=== PATIENT | male | born 1980 | race Caucasian/White ===

== ENCOUNTER 2019-04-06 11:29 | Emergency (ER) | payer OTHER ==
[2019-04-06 11:43] VITALS: BP 138/93
[2019-04-06] MEDS ORDERED: BUFFERED LIDOCAINE 10 ML SYRINGE SUBQ STA (13:02)
--- NOTE | 2019-04-06 13:13 | ED Physician Documentation ---
History of Present Illness - Stated complaint Stated Complaint: BACK PX - Chief complaint Chief Complaint: Back Pain - Additonal information Additional information: This is a 38-year-old male with a history of multiple hernia repairs, who pr esents due to left upper back pain as well as being checked for recurrence of his inguinal hernia. Patient states that this last week he was in physical training and he picked up a log, and he felt immediate strain in his left upper back. Pain is been persistent since that time, and as he has been physically active each day so he has not had a time to rest it, and it has persisted. Motrin has not been helpful with his pain. He denies any pain in the midline of his back, he has some mild discomfort in his lower back which he thinks is from compensating how he carries himself due to his upper back pain. No shortness of breath, no chest pain. He also has some mild discomfort in his right inguinal region where he had a past multiple hernia repairs. He has not noticed any bulge, but he states that his sensation is area is somewhat limited due to his surgeries, so he wants to be checked to make sure his hernia has not recurred. No dysuria or testicular pain. Review of Systems Constitutional: denies: Fever : denies: Dysuria Skin: denies: Rash Musculoskeletal: reports: Back pain Neurologic: denies: Focal weakness PD PAST MEDICAL HISTORY - Past Medical History Past Medical History: No - Past Surgical History Past Surgical History: Yes General: Hiatal hernia repair - Present Medications Home Medications: Ambulatory Orders Medication Instructions Recorded Confirmed Cyclobenzaprine [Flexeril] 10 mg PO TID PRN #20 tablet 04/06/19 - Allergies Allergies/Adverse Reactions: Allergies Allergy/AdvReac Type Severity Reaction Status Date / Time No Known Drug Allergies Allergy Verified 04/06/19 11:43 - Social History Does the pt smoke?: No Smoking Status: Never smoker Does the pt drink ETOH?: Yes Does the pt have substance abuse?: No - Immunizations Immunizations are current?: Yes - POLST Patient has POLST: No PD ED PE NORMAL - Vitals Vital signs reviewed: Yes - General General: Alert and oriented X 3, No acute distress - HEENT HEENT: Atraumatic - Neck Neck: No bony TTP - Cardiac Cardiac: Other (Well-perfused extremities) - Respiratory Respiratory: Clear bilaterally - Abdomen Abdomen: Non distended - Male Male : Other (Genitalia normal in appearance. There is a small scar in the right inguinal region, which appears well-healed. There is no bulge or tenderness in this region. No inguinal mass palpated, no scrotal mass palpated, and no inguinal bulging with Valsalva/coughing.) - Back Back: Other (Patient has tenderness palpation over the left thoracic paraspinous muscles in the region of T8. There is no midline tenderness. There is more mild bilateral paraspinous lumbar discomfort, but no midline tenderness.) - Derm Derm: Warm and dry - Extremities Extremities: No deformity - Neuro Neuro: Alert and oriented X 3, No motor deficit, No sensory deficit - Psych Psych: Normal mood, Normal affect Results - Vitals Vitals: Oxygen O2 Source Room air Procedures - General procedure General procedure: Trigger point injection: After verbal consent obtained and risks discussed, the area of maximal tenderness was palpated and cleaned with alcohol. USing a 27 gauge needle 0.5cc lidocaine was injected in 2 areas of maximal tenderness. Care was taken to stay superficial in the muscle, and I withdrew on the syringe prior to injection to ensure the needle was not in a vessel. Pt tolerated the procedure well without immediate complication. PD MEDICAL DECISION MAKING - ED course Complexity details: considered differential (strain, sprain, spasm, fracture, hernia) ED course: Pt has pain and tenderness in his paraspinous muscles after a straining event. No midline tenderness or red flags that would necessitate imaging. Trigger point injection performed and we will treat with tylenol, ibuprofen, flexeril. I do not see signs of hernia on exam, though I discussed that with continued symptoms or concern pt could obtain an ultrasound and repeat exam with his PCP. I discussed return precautions and patient was discharged with a note excusing him from several days of work to allow his back time to recuperate. Departure - Departure Disposition: 01 Home, Self Care Condition: Good Follow-Up: Paz Ricketts MD [Primary Care Provider] - Within 1 week (Please follow up on back pain and consideration of further evaluation for potential hernia recurrence) Prescriptions: Cyclobenzaprine [Flexeril] 10 mg PO TID PRN #20 tablet PRN Reason: Spasms Comments: You appear to have a strain of your back. You may take the Flexeril for pain/spasm, please also try ice, as well as continue taking ibuprofen 600 mg every 6 hours, and Tylenol 650 mg every 6 hours. Please follow-up with your primary care provider on your symptoms, and for consideration of further testing for an inguinal hernia. I did not see signs of a hernia on my physical exam today, but ultrasound is a more sensitive test. Forms: Activity restrictions Discharge Date/Time: 04/06/19 13:34
== END 2019-04-06 13:34 | disposition home or self-care (01) ==
LOC: ED 11:29
DX: M54.6 Pain in thoracic spine (principal)
CPT/HCPCS: 20552

== ENCOUNTER 2019-04-26 07:50 | Emergency (ER) | payer OTHER ==
[2019-04-26 07:57] VITALS: BP 142/95
[2019-04-26] MEDS ORDERED: CHERRY SYRUP 10 ML UDC PO ONE (08:27)
[2019-04-26] MEDS ORDERED: DEXAMETHASONE 10 MG/ML VIAL PO STA (08:27)
--- NOTE | 2019-04-26 08:30 | ED Physician Documentation ---
PD HPI BACK INJURY - Stated complaint Stated Complaint: BACK PX - History obtained from History obtained from: Patient - History of Present Illness Location: Left, Upper Type of injury: Other (carrying log after excessive activity) Where injury occurred: Work Timing - onset: How many weeks ago (4) Timing - duration: Weeks (4) Timing - details: Abrupt onset, Still present Quality: Pain, Spasm, Sharp, Similar to prior episodes Improved by: Rest Worsened by: Moving, Palpating Associated symptoms: No: Fever, Weakness, Numbness, Incontinent of urine, Unable to urinate, Hematuria, Incontinent of stool Contributing factors: No: Anticoagulated, Prior back surgery Similar symptoms before: Has not had sx before Recently seen: Clinic, Emergency Dept - Additional information Additional information: 38-year-old male was doing physical activity with the [employer] and this included carrying a 15 pound log. He states that he had done extensive physical activity and then while carrying this log he had the sudden onset of severe pain in his left upper back. The pain is persisted for the past month. He was seen originally in the emergency department had a trigger point injection which only helped temporarily. He states the pain is progressed and is now worse. He has tried some muscle relaxant and some anti-inflammatory without help. He has been into see the clinic he has had an x-ray done and they are planning on doing an MRI. He is here today with persistent mid back pain. Review of Systems Constitutional: denies: Fever Eyes: denies: Decreased vision Ears: denies: Ear pain Nose: denies: Congestion Throat: denies: Sore throat Cardiac: denies: Chest pain / pressure, Palpitations Respiratory: denies: Dyspnea, Cough GI: denies: Abdominal Pain, Nausea, Vomiting : denies: Dysuria Skin: denies: Rash Musculoskeletal: reports: Back pain. denies: Neck pain, Extremity pain PD PAST MEDICAL HISTORY - Past Surgical History Past Surgical History: Yes General: Hiatal hernia repair - Present Medications Home Medications: Ambulatory Orders Medication Instructions Recorded Confirmed Cyclobenzaprine [Flexeril] 10 mg PO TID PRN #20 tablet 04/06/19 Cyclobenzaprine [Flexeril] 10 mg PO TID PRN #20 tablet 04/26/19 Hydrocodone/Acetaminophen 1 - 2 each PO Q6H PRN #14 tablet 04/26/19 [Hydrocodon-Acetaminophen 5-325] - Allergies Allergies/Adverse Reactions: Allergies Allergy/AdvReac Type Severity Reaction Status Date / Time No Known Drug Allergies Allergy Verified 04/26/19 07:58 - Social History Does the pt smoke?: No Smoking Status: Never smoker Does the pt drink ETOH?: Yes Does the pt have substance abuse?: No - Immunizations Immunizations are current?: Yes - POLST Patient has POLST: No PD ED PE NORMAL - Vitals Vital signs reviewed: Yes (hypertensive) - General General: Alert and oriented X 3, No acute distress, Well developed/nourished - HEENT HEENT: Atraumatic, PERRL, EOMI - Neck Neck: Supple, no meningeal sign - Cardiac Cardiac: RRR, No murmur - Respiratory Respiratory: No respiratory distress, Clear bilaterally, Other (There is an area of the paraspinous muscles on the left side at the base of the thoracic spine that is tender without overlying skin irritation or changes. There is no palapble mass) - Abdomen Abdomen: Soft, Non tender - Back Back: No CVA TTP, No spinal TTP - Derm Derm: Normal color, Warm and dry, No rash - Extremities Extremities: No deformity, No edema - Neuro Neuro: Alert and oriented X 3, moveman 2-12 intact, No motor deficit, No sensory deficit, Normal speech Eye Opening: Spontaneous Motor: Obeys Commands Verbal: Oriented GCS Score: 15 - Psych Psych: Normal mood, Normal affect Results - Vitals Vitals: Vital Signs - 24 hr 04/26/19 07:55 Temperature 35.7 C L Heart Rate 77 Respiratory 20 Rate Blood Pressure 142/95 H O2 Saturation 100 Oxygen O2 Source Room air PD MEDICAL DECISION MAKING - ED course Complexity details: considered differential, d/w patient ED course: 38-year-old male with thoracic spine muscle strain has persistence of pain over the past 4 weeks he is administered dexamethasone 10 mg orally we will place him on some Flexeril and hydrocodone and he has follow-up with his primary. Departure - Departure Disposition: 01 Home, Self Care Clinical Impression: Thoracic myofascial strain Qualifiers: Encounter type: initial encounter Qualified Code(s): S29.019A - Strain of muscle and tendon of unspecified wall of thorax, initial encounter Condition: Stable Instructions: ED Sprain Thoracic Spine Follow-Up: Paz Ricketts MD [Primary Care Provider] - Prescriptions: Cyclobenzaprine [Flexeril] 10 mg PO TID PRN #20 tablet PRN Reason: Spasms Hydrocodone/Acetaminophen [Hydrocodon-Acetaminophen 5-325] 1 - 2 each PO Q6H PRN #14 tablet PRN Reason: pain
== END 2019-04-26 08:40 | disposition home or self-care (01) ==
LOC: ED 07:50
DX: S29.012A Strain of muscle and tendon of back wall of thorax, initial encounter (principal); X50.0XXA Overexertion from strenuous movement or load, initial encounter; Y93.89 Activity, other specified; Y99.0 Civilian activity done for income or pay
CPT/HCPCS: 99282; 99284; A9270

== ENCOUNTER 2021-04-20 21:34 | Emergency (ER) | payer OTHER ==
--- NOTE | 2021-04-20 21:55 | ED Physician Documentation ---
History of Present Illness - Stated complaint Stated Complaint: LIGHT HEADED - Chief complaint Chief Complaint: General - History obtained from History obtained from: Patient - History of Present Illness Timing: How many days ago (2-3) Pain level max: 0 Pain level now: 0 Improved by: rest Worsened by: exertion - Additonal information Additional information: c/o [place] and exercise intolerance x 2-3 days. He says he used to be able to walk for seven miles without feeling tired or short of breath but over past 2-3 days, increasing exercise intolerance and now can only walk one mile before he is fatigued and short of breath. He has episodes of lightheadedness and paresthesias of hands and feet. He denies current chest pain although he says he had an episode lasting 20 minutes of a knot of discomfort, midline chest, 3-4 nights ago that resolved spontaneously and has not recurred. He is COVID vaccinated. he has had mild, [employer] cough. Review of Systems Constitutional: reports: Fatigue. denies: Fever, Chills, Myalgias, Sweats Cardiac: reports: Chest pain / pressure (20 minute episode 3-4 nights ago, resolved). denies: Palpitations, Pedal edema Respiratory: reports: Dyspnea, Cough. denies: Wheezing GI: reports: Reviewed and negative Musculoskeletal: reports: Reviewed and negative Neurologic: reports: Generalized weakness. denies: Focal weakness, Numbness, Headache PD PAST MEDICAL HISTORY - Past Medical History Past Medical History: Yes Cardiovascular: None Respiratory: None Neuro: None Endocrine/Autoimmune: None GI: None : None HEENT: None Psych: None Musculoskeletal: Chronic back pain Derm: None - Past Surgical History Past Surgical History: Yes General: Hiatal hernia repair - Present Medications Home Medications: Ambulatory Orders Medication Instructions Recorded Confirmed No Known Home Medications 04/20/21 04/20/21 - Allergies Allergies/Adverse Reactions: Allergies Allergy/AdvReac Type Severity Reaction Status Date / Time No Known Drug Allergies Allergy Verified 04/20/21 21:41 - Social History Does the pt smoke?: No Smoking Status: Never smoker Does the pt drink ETOH?: Yes Does the pt have substance abuse?: No - Immunizations Immunizations are current?: Yes - POLST Patient has POLST: No PD ED PE NORMAL - Vitals Vital signs reviewed: Yes - General General: Alert and oriented X 3, No acute distress, Well developed/nourished - HEENT HEENT: Moist mucous membranes - Neck Neck: Supple, no meningeal sign - Cardiac Cardiac: RRR, No murmur, No gallop, No rub - Respiratory Respiratory: No respiratory distress, Clear bilaterally - Abdomen Abdomen: Soft, Non tender - Derm Derm: Normal color, Warm and dry - Extremities Extremities: No edema Results - Vitals Vitals: Oxygen O2 Source Room air - EKG (time done) No standard instances Rate: Rate (enter#) (62) Rhythm: NSR [place]: Normal Intervals: Normal NH QRS: Normal Ischemia: Normal ST segments - Labs Labs: Laboratory Tests 04/20/21 04/20/21 04/20/21 22:32 22:34 22:34 WBC 7.0 RBC 4.71 Hgb 14.5 Hct 43.3 MCV 91.9 MCH 30.8 MCHC 33.5 RDW 12.1 Plt Count 233 MPV 10.0 Neut # (Auto) 3.4 Lymph # (Auto) 2.9 Emery # (Auto) 0.4 Eos # (Auto) 0.3 Baso # (Auto) 0.0 Absolute Nucleated RBC 0.00 Nucleated RBC % 0.0 Sodium 140 Potassium 4.4 Chloride 103 Carbon Dioxide 29 Anion Gap 8.0 BUN 15 Creatinine 1.4 H Estimated GFR (MDRD) 56 L Glucose 124 H Calcium 8.9 Troponin I High Sens Nasal Adenovirus (PCR) NOT DETECTED Nasal B. parapertussis DNA (PCR) NOT DETECTED Nasal Coronavir 229E PCR NOT DETECTED Nasal Coronavir HKU1 PCR NOT DETECTED Nasal Coronavir NL63 PCR NOT DETECTED Nasal Coronavir OC43 PCR NOT DETECTED Nasal Enterovir/Rhinovir PCR NOT DETECTED Nasal Influenza B PCR NOT DETECTED Nasal Influenza A PCR NOT DETECTED Nasal Parainfluen 1 PCR NOT DETECTED Nasal Parainfluen 2 PCR NOT DETECTED Nasal Parainfluen 3 PCR NOT DETECTED Nasal Parainfluen 4 PCR NOT DETECTED Nasal RSV (PCR) NOT DETECTED Nasal B.pertussis DNA PCR NOT DETECTED Nasal C.pneumoniae (PCR) NOT DETECTED Scott Human Metapneumo PCR NOT DETECTED Nasal M.pneumoniae (PCR) NOT DETECTED Nasal SARS-CoV-2 (PCR) NOT DETECTED 04/20/21 22:34 WBC RBC Hgb Hct MCV MCH MCHC RDW Plt Count MPV Neut # (Auto) Lymph # (Auto) Emery # (Auto) Eos # (Auto) Baso # (Auto) Absolute Nucleated RBC Nucleated RBC % Sodium Potassium Chloride Carbon Dioxide Anion Gap BUN Creatinine Estimated GFR (MDRD) Glucose Calcium Troponin I High Sens 2.5 Nasal Adenovirus (PCR) Nasal B. parapertussis DNA (PCR) Nasal Coronavir 229E PCR Nasal Coronavir HKU1 PCR Nasal Coronavir NL63 PCR Nasal Coronavir OC43 PCR Nasal Enterovir/Rhinovir PCR Nasal Influenza B PCR Nasal Influenza A PCR Nasal Parainfluen 1 PCR Nasal Parainfluen 2 PCR Nasal Parainfluen 3 PCR Nasal Parainfluen 4 PCR Nasal RSV (PCR) Nasal B.pertussis DNA PCR Nasal C.pneumoniae (PCR) Scott Human Metapneumo PCR Nasal M.pneumoniae (PCR) Nasal SARS-CoV-2 (PCR) - Rads (name of study) chest xray Radiology: Prelim report reviewed, See rad report PD MEDICAL DECISION MAKING - ED course Complexity details: reviewed results, re-evaluated patient, considered differential, d/w patient ED course: no cause for patients symptoms are revealed nor suggested on tonights testing. Normal EKG and CXR, normal vital signs, lungs are CTA bilaterally and no concerning abnormalities on blood tests (1.5 creatinine incidentally noted and advised to f/u for this). Respiratory panel is negative including COVID. Results reviewed with patient, advised to return if worse, follow up with PMD next available appointment Departure - Departure Disposition: 01 Home, Self Care Clinical Impression: Dyspnea Qualifiers: Dyspnea type: unspecified Qualified Code(s): R06.00 - Dyspnea, unspecified Condition: Good Instructions: ED Dyspnea Shortness of Breath Follow-Up: SCOTT Rao [Provider Group] Discharge Date/Time: 04/21/21 01:18
[2021-04-20 22:46] LABS: BASOPHILS % (AUTO) 0.6 %; EOSINOPHILS # (AUTO) 0.3 10^3/uL (0.0-0.7); EOSINOPHILS % (AUTO) 3.6 %; HCT - HEMATOCRIT 43.3 % (42.0-52.0); HGB - HEMOGLOBIN 14.5 g/dL (14.0-18.0); LYMPHOCYTES # (AUTO) 2.9 10^3/uL (1.5-3.5); LYMPHOCYTES % (AUTO) 40.7 %; MEAN CORPUSCULAR HEMOGLOBIN 30.8 pg (27.0-31.0); MEAN CORPUSCULAR HGB CONC 33.5 g/dL (32.0-36.0); MEAN CORPUSCULAR VOLUME 91.9 fL (80.0-94.0); MONOCYTES # (AUTO) 0.4 10^3/uL (0.0-1.0); MONOCYTES % (AUTO) 5.8 %; NEUTROPHILS # (AUTO) 3.4 10^3/uL (1.5-6.6); NEUTROPHILS % (AUTO) 48.6 %; PLT - PLATELET COUNT 233 10^3/uL (130-450); RED BLOOD COUNT 4.71 10^6/uL (4.70-6.10); RED CELL DISTRIBUTION WIDTH 12.1 % (12.0-15.0)
[2021-04-20 22:48] LABS: CALCIUM 8.9 mg/dL (8.5-10.3); CREATININE 1.4 mg/dL (0.6-1.2); POTASSIUM 4.4 mmol/L (3.5-5.0)
[2021-04-21 00:18] LABS: B. PARAPERTUSSIS- RESP PCR PAN NOT DETECTED; B. PERTUSSIS- RESP PCR PANEL NOT DETECTED; C. PNEUMONIAE- RESP PCR PANEL NOT DETECTED; CORONAVIRUS 229E-RESP PCR NOT DETECTED; CORONAVIRUS HKU1-RESP PCR NOT DETECTED; CORONAVIRUS NL63-RESP PCR NOT DETECTED; CORONAVIRUS OC43-RESP PCR NOT DETECTED; HUMAN METAPNEUMOVIRUS NOT DETECTED; INFLUENZA A- RESP PCR PANEL NOT DETECTED; INFLUENZA B - RESP PCR PANEL NOT DETECTED; M. PNEUMONIAE- RESP PCR PANEL NOT DETECTED; PARAINFLUENZA VIRUS 1 NOT DETECTED; PARAINFLUENZA VIRUS 2 NOT DETECTED; PARAINFLUENZA VIRUS 3 NOT DETECTED; PARAINFLUENZA VIRUS 4 NOT DETECTED; RHINOVIRUS/ENTEROVIRUS NOT DETECTED; RSV- RESP PCR PANEL NOT DETECTED; SARS-CoV-2 -RESP PCR PANEL NOT DETECTED
[2021-04-21 01:19] VITALS: BP 134/84
--- NOTE | 2021-04-21 07:59 | XRAY Report ---
PROCEDURE: Chest 2 View X-Ray INDICATIONS: dyspnea, cough TECHNIQUE: 2 view(s) of the chest. COMPARISON: None. FINDINGS: Surgical changes and devices: None. Lungs and pleura: No pleural effusions or pneumothorax. Lungs are clear. Mediastinum: Mediastinal contours are normal. Heart size is normal. Bones and chest wall: No suspicious bony abnormalities. Soft tissues appear unremarkable. IMPRESSION: Normal. Note: No significant discrepancy from the preliminary report. Reviewed by: Moises Kapoor MD on 04/21/2021 6:58 AM COBY Approved by: Moises Kapoor MD on 04/21/2021 6:58 AM COBY Station ID: [id number]
== END 2021-04-21 01:18 | disposition home or self-care (01) ==
LOC: ED 21:34
DX: R06.00 Dyspnea, unspecified (principal); Z20.822 Contact with and (suspected) exposure to COVID-19
CPT/HCPCS: 0202U; 36415; 71046; 80048; 84484; 85025; 93005; 99284

== ENCOUNTER 2021-05-13 08:35 | Emergency (ER) | payer OTHER ==
[2021-05-13] MEDS ORDERED: SODIUM CHLORIDE 0.9% 1,000 ML IV STA (10:26)
--- NOTE | 2021-05-13 10:47 | CT Report ---
PROCEDURE: HEAD WO INDICATIONS: Right-sided weakness and numbness TECHNIQUE: Noncontrast 4.5 mm thick angled axial sections acquired from the foramen magnum to the vertex. For r adiation dose reduction, the following was used: automated exposure control, adjustment of mA and/or kV according to patient size. COMPARISON: None. FINDINGS: Image quality: Excellent. CSF spaces: Basal cisterns are patent. No extra-axial fluid collections. Ventricles are normal in size and shape. Brain: No midline shift. No intracranial masses or hemorrhage. Gentile-white matter interface is norm al. Skull and face: Calvarium and visualized facial bones are intact, without suspicious lesions. Sinuses: Visualized sinuses and mastoids are clear. IMPRESSION: No acute intracranial abnormality. Reviewed by: Tay Velasquez MD on 05/13/2021 10:46 AM PDT Approved by: Tay Velasquez MD on 05/13/2021 10:46 AM PDT Station ID: [id number]
--- NOTE | 2021-05-13 10:53 | XRAY Report ---
PROCEDURE: Chest 1 View X-Ray INDICATIONS: chest pain TECHNIQUE: One view of the chest was acquired. COMPARISON: 04/20/2021 chest radiographs FINDINGS: Surgical changes and devices: None. Lungs and pleura: No pleural effusions or pneumothorax. Lungs are clear. Mediastinum: Mediastinal contours appear normal. Heart size is normal. Bones and chest wall: No suspicious bony lesions. Overlying soft tissues appear unremarkable. IMPRESSION: No acute cardiopulmonary process demonstrated radiographically. Reviewed by: Tay Velasquez MD on 05/13/2021 10:51 AM PDT Approved by: Tay Velasquez MD on 05/13/2021 10:51 AM PDT Station ID: [id number]
[2021-05-13 10:56] LABS: BASOPHILS % (AUTO) 0.5 %; EOSINOPHILS # (AUTO) 0.4 10^3/uL (0.0-0.7); EOSINOPHILS % (AUTO) 6.4 %; HCT - HEMATOCRIT 45.8 % (42.0-52.0); HGB - HEMOGLOBIN 15.7 g/dL (14.0-18.0); LYMPHOCYTES # (AUTO) 2.2 10^3/uL (1.5-3.5); LYMPHOCYTES % (AUTO) 34.4 %; MEAN CORPUSCULAR HEMOGLOBIN 30.6 pg (27.0-31.0); MEAN CORPUSCULAR HGB CONC 34.3 g/dL (32.0-36.0); MEAN CORPUSCULAR VOLUME 89.3 fL (80.0-94.0); MEAN PLATELET VOLUME 9.5 fL (7.4-11.4); MONOCYTES # (AUTO) 0.4 10^3/uL (0.0-1.0); MONOCYTES % (AUTO) 6.4 %; NEUTROPHILS # (AUTO) 3.2 10^3/uL (1.5-6.6); NEUTROPHILS % (AUTO) 51.3 %; PLT - PLATELET COUNT 227 10^3/uL (130-450); RED BLOOD COUNT 5.13 10^6/uL (4.70-6.10); RED CELL DISTRIBUTION WIDTH 12.2 % (12.0-15.0); WHITE BLOOD COUNT 6.3 x10^3/uL (4.8-10.8)
[2021-05-13 11:08] LABS: ALBUMIN 4.5 g/dL (3.2-5.5); ALBUMIN/GLOBULIN RATIO 1.9 (1.0-2.2); BILIRUBIN,TOTAL 1.8 mg/dL (0.2-1.0); CALCIUM 9.2 mg/dL (8.5-10.3); CREATININE 1.2 mg/dL (0.6-1.2); POTASSIUM 4.2 mmol/L (3.5-5.0); TOTAL PROTEIN 6.9 g/dL (6.7-8.2)
[2021-05-13 11:21] LABS: T4 (THYROXINE) 9.28 ug/dL (6.09-12.23)
[2021-05-13 11:25] LABS: THYROID STIMULATING HORMONE 2.92 uIU/mL (0.34-5.60)
[2021-05-13 11:49] LABS: BILIRUBIN,URINE NEGATIVE (NEGATIVE); GLUCOSE, URINE (UA) NEGATIVE (NEGATIVE); KETONES,URINE (UA) NEGATIVE (NEGATIVE); LEUKOCYTE ESTERASE, URINE NEGATIVE (NEGATIVE); NITRITE,URINE NEGATIVE (NEGATIVE); OCCULT BLOOD,URINE NEGATIVE (NEGATIVE); PH,URINE 7.5 PH (5.0-7.5); PROTEIN,URINE NEGATIVE (NEGATIVE); UROBILINOGEN,URINE 0.2 (NORMAL) E.U./dL (NORMAL)
[2021-05-13 12:03] LABS: CLARITY,URINE CLEAR (CLEAR)
--- NOTE | 2021-05-13 12:15 | ED Physician Documentation ---
History of Present Illness - Stated complaint Stated Complaint: LIGHTHEADED - Chief complaint Chief Complaint: Neuro - History obtained from History obtained from: Patient - History of Present Illness Timing: How many weeks ago (4) - Additonal information Additional information: 40-year-old male who reports a 4-week history of dizziness and lightheadedness associated with some numbness to the arms and legs an difficulty concentrating. He feels the symptoms are migrating upward. He reports that he was walking about 7 miles per day and then has not been able to run. Review of Systems Constitutional: reports: Fatigue. denies: Fever Eyes: denies: Decreased vision Ears: denies: Ear pain Nose: denies: Rhinorrhea / runny nose, Congestion Throat: denies: Sore throat Cardiac: denies: Chest pain / pressure, Palpitations, Pedal edema, Calf pain Respiratory: reports: Dyspnea. denies: Cough GI: denies: Abdominal Pain, Nausea, Vomiting : denies: Dysuria, Frequency Skin: denies: Rash Musculoskeletal: denies: Neck pain, Back pain, Extremity pain Neurologic: denies: Generalized weakness, Focal weakness, Numbness, Difficulty speaking, Confused, Altered mental status, Headache, Head injury, LOC PD PAST MEDICAL HISTORY - Past Medical History Cardiovascular: None Respiratory: None Neuro: None Endocrine/Autoimmune: None GI: None : None HEENT: None Psych: None Musculoskeletal: Chronic back pain Derm: None - Past Surgical History Past Surgical History: Yes General: Hiatal hernia repair - Present Medications Home Medications: Ambulatory Orders Medication Instructions Recorded Confirmed No Known Home Medications 04/20/21 05/13/21 - Allergies Allergies/Adverse Reactions: Allergies Allergy/AdvReac Type Severity Reaction Status Date / Time No Known Drug Allergies Allergy Verified 05/13/21 09:01 - Social History Does the pt smoke?: No Smoking Status: Never smoker Does the pt drink ETOH?: Yes Does the pt have substance abuse?: No - Immunizations Immunizations are current?: Yes - POLST Patient has POLST: No PD ED PE NORMAL - Vitals Vital signs reviewed: Yes (hypertensive ) - General General: Alert and oriented X 3, No acute distress, Well developed/nourished - HEENT HEENT: Atraumatic, PERRL, EOMI - Neck Neck: Supple, no meningeal sign, No bony TTP - Cardiac Cardiac: RRR, No murmur - Respiratory Respiratory: No respiratory distress, Clear bilaterally - Abdomen Abdomen: Normal bowel sounds, Soft, Non tender, Non distended, No organomegaly - Back Back: No CVA TTP, No spinal TTP - Derm Derm: Normal color, Warm and dry, No rash - Extremities Extremities: No deformity, No edema - Neuro Neuro: Alert and oriented X 3, wrapping clerk 2-12 intact, No motor deficit, No sensory deficit, Normal speech Eye Opening: Spontaneous Motor: Obeys Commands Verbal: Oriented GCS Score: 15 - Psych Psych: Normal mood, Normal affect Results - Vitals Vitals: Vital Signs - 24 hr 05/13/21 05/13/21 05/13/21 08:57 11:01 12:31 Temperature 36.3 C L Heart Rate 88 74 75 Respiratory 16 18 16 Rate Blood Pressure 144/103 H 142/100 H 134/68 H O2 Saturation 100 99 98 Oxygen O2 Source Room air - EKG (time done) 1048 Rate: Rate (enter#) (67) Rhythm: LAE QRS: LVH Compare to prior EKG: Unchanged from prior EKG (SPT 04-20-2021 no sig change) Computer interpretation: Agree with computer - Labs Labs: Laboratory Tests 05/13/21 05/13/21 05/13/21 10:48 10:48 10:48 WBC 6.3 RBC 5.13 Hgb 15.7 Hct 45.8 MCV 89.3 MCH 30.6 MCHC 34.3 RDW 12.2 Plt Count 227 MPV 9.5 Neut # (Auto) 3.2 Lymph # (Auto) 2.2 Webster # (Auto) 0.4 Eos # (Auto) 0.4 Baso # (Auto) 0.0 Absolute Nucleated RBC 0.00 Nucleated RBC % 0.0 ESR Sodium 141 Potassium 4.2 Chloride 101 Carbon Dioxide 30 Anion Gap 10.0 BUN 12 Creatinine 1.2 Estimated GFR (MDRD) 67 L Glucose 98 Calcium 9.2 Total Bilirubin 1.8 H AST 21 ALT 27 Alkaline Phosphatase 78 C-Reactive Protein Total Protein 6.9 Albumin 4.5 Globulin 2.4 Albumin/Globulin Ratio 1.9 Lipase 25 TSH 2.92 Thyroxine (T4) 9.28 Urine Color Urine Clarity Urine pH Ur Specific [place] Urine Protein Urine Glucose (UA) Urine Ketones Urine Occult Blood Urine Nitrite Urine Bilirubin Urine Urobilinogen Ur Leukocyte Esterase Ur Microscopic Review Urine Culture Comments 05/13/21 05/13/21 05/13/21 10:48 10:48 11:28 WBC RBC Hgb Hct MCV MCH MCHC RDW Plt Count MPV Neut # (Auto) Lymph # (Auto) Webster # (Auto) Eos # (Auto) Baso # (Auto) Absolute Nucleated RBC Nucleated RBC % ESR 1 Sodium Potassium Chloride Carbon Dioxide Anion Gap BUN Creatinine Estimated GFR (MDRD) Glucose Calcium Total Bilirubin AST ALT Alkaline Phosphatase C-Reactive Protein < 1.0 Total Protein Albumin Globulin Albumin/Globulin Ratio Lipase TSH Thyroxine (T4) Urine Color LT. YELLOW Urine Clarity CLEAR Urine pH 7.5 Ur Specific [place] 1.010 Urine Protein NEGATIVE Urine Glucose (UA) NEGATIVE Urine Ketones NEGATIVE Urine Occult Blood NEGATIVE Urine Nitrite NEGATIVE Urine Bilirubin NEGATIVE Urine Urobilinogen 0.2 (NORMAL) Ur Leukocyte Esterase NEGATIVE Ur Microscopic Review NOT INDICATED Urine Culture Comments NOT INDICATED - Rads (name of study) chest Radiology: Prelim report reviewed (Impression: No acute cardiopulmonary process demonstrated radiographically.), EMP read indepedently, See rad report CT head Radiology: Prelim report reviewed (Impression: No acute intracranial abnormality.), EMP read indepedently, See rad report Procedures - IVC sono (time) 1012 Bedside IVC sono: IVC measures (cm) (1.12), Dehydration (est 1+ liter deficit) PD MEDICAL DECISION MAKING - ED course Complexity details: considered differential, d/w patient ED course: 40-year-old male with complaints of fatigue numbness and reduced exercise tolerance excessive sleeping has no specific findings on physical examination laboratory evaluation or diagnostic imaging. I found no worrisome findings on this patient with the exception of some mild dehydration and he was given a liter of saline. I do not believe that this is a reason for this patient's symptom complex. I considered Guillain-[place] is a possibility however did not clinically fit and physical exam findings were absent. Patient will follow up with his primary. Departure - Departure Disposition: 01 Home, Self Care Clinical Impression: Dehydration determined by examination Hypertension Qualifiers: Hypertension type: unspecified Qualified Code(s): I10 - Essential (primary) hypertension Condition: Stable Instructions: ED Dehydration, ED Hypertension Poss Follow-Up: SCOTT Rao [Provider Group] Comments: Today in the Emergency Department your blood pressure was elevated. This can happen from the stress of the visit itself, from a current illness or circumstance or from uncontrolled hypertension. If you take blood pressure medications take your usual mediations, have your blood pressure re-checked in an appropriate setting and follow up any elevation with your primary care doctor. High blood pressure and as were our only findings today. My recommendation is to follow-up with your primary care doctor to consider echocardiogram. Hypertension can cause a hypertensive heart which can reduce your exercise tolerance. Discharge Date/Time: 05/13/21 12:35
[2021-05-13 12:33] VITALS: BP 134/68
== END 2021-05-13 12:35 | disposition home or self-care (01) ==
LOC: ED 08:35
DX: E86.0 Dehydration (principal); I10 Essential (primary) hypertension
CPT/HCPCS: 36415; 80053; 81001; 81003; 83690; 84436; 84443; 85025; 85651; 86140; 87086; 93005; 96360; 99284

== ENCOUNTER 2021-10-03 07:14 | Outpatient (CLI) | payer OTHER ==
--- NOTE | 2021-10-03 09:33 | MRI Report ---
PROCEDURE: Thoracic Spine W/O INDICATIONS: THORACIC SPINE PAIN TECHNIQUE: Noncontrast sagittal T1 spine echo and T2 fast spin echo, sagittal STIR, axial T1 and T2 fast spin ec ho through the thoracic spine. COMPARISON: None. FINDINGS: Image quality: Excellent. Alignment and Curvature: There is normal bony alignment. Bone Marrow: Marrow is of normal overall signal. No acute vertebral body compression fractures. Spinal Cord: Visualized spinal cord is normal in size and signal. Paraspinous Soft Tissues: No paravertebral masses. Miscellaneous: Mild degenerative changes noted in the upper and mid thoracic spine. No central steno sis. No neural foraminal narrowing. No neural compression. IMPRESSION: 1. Mild multilevel degenerative disc disease. 2. No central stenosis. 3. No neural foraminal narrowing. 4. No neural compression. Reviewed by: Tali Cruz MD, PhD on 10/03/2021 9:31 AM PST Approved by: Tali Cruz MD, PhD on 10/03/2021 9:31 AM PST Station ID: [id number]
== END 2021-10-03 07:15 | disposition home or self-care (01) ==
LOC: DI 07:14
PROVIDERS: ATTEND Physician Assistant
DX: M51.34 Other intervertebral disc degeneration, thoracic region (principal)

== ENCOUNTER 2021-11-12 13:45 | Outpatient (CLI) | payer OTHER ==
[2021-11-12 14:42] VITALS: BP 125/73
--- NOTE | 2021-11-12 14:42 | SLEEP CARE CONSULTATION ---
Information from patient questionnaire entered by Deandre Ragland MA. I have reviewed and concur with the information entered by Deandre Ragland MA. This document represents the service I personally performed and the decisions made by , Rosa Cosme ARNP. History of Present Illness Service Date and Time: 11/12/2021 1345 Reason for Visit: New patient (ONSET 03/2021, NO PRIORS, ) Chief Complaint: reports: Insomnia, Unrefreshed sleep, Excessive daytime sleepi ness, Fatigue, Frequent awakenings at night Date of Onset: 7 MONTHS Usual bedtime: 10 PM Time it takes to fall asleep: HOUR OR MORE Snores at night: No (sleeps alone) Observed to quit breathing while asleep: No Sleeps alone due to snoring: No Number of times waking at night: 2-3 Reasons for waking at night: reports: Bathroom, Other (unknown reasons). denies: Choking, Snoring, Gasping for air Toss, Turn, or Twitch while sleeping: Yes Recalls having dreams: No (maybe once a week) Usually gets out of bed at: 0600; maybe 0700 on weekend Feels refreshed in the morning: No (feels fatigued all day long) Morning headache: No Sleepy or fatigued during the day: Yes Ever fallen asleep while driving: No Takes day naps: Yes (4-5 times a week; 1-2 hours, sometimes more) Dreams during day naps: No Prior sleep studies: No Additional HPI information: I had the pleasure of seeing CLAIRE ROGERS today regarding the possibility of him having a sleep disorder. His current complaints are excessive daytime sleepiness, fatigue, frequent night awakenings and unrefreshed sleep. He is not sure he snores because no one has told him he snores but he sleeps alone. He states he has not slept well in years but in the last 7 months they have been worse. He lays down about 10 pm. He normally takes about 1 hour or more to fall asleep. He states he will then wake up at least once during the night. He can go right back to sleep unless it is within 2 hours of him getting up he will just get out of bed. He is having days where he will lay on the couch and go back to sleep because he is so fatigued. He has been diagnosed with fibromyalgia. - Parasomnia Symptoms Ever been unable to move upon waking from sleep: No Walks in sleep: No Talks in sleep: No Ever acted out dreams in sleep: No Ever felt weak in the knees when startled or emotional: No Bothered by creepy, crawly, restless sensations in legs: No Problems with memory or concentration: Yes (both) Subjective Initial Guide Rock Sleepiness Scale score: 3 (10/2021) Past Medical History Past Medical History: reports: Hypertension, Fibromyalgia, Other (hernia surgery 2018) Social History The patient's occupation is a [employer]. Patient is Single and lives in . Have you smoked in the past 12 months: No Alcohol use: No Caffeine use: Yes Caffeine amount and frequency: 1 X DAILY Family History Family history of sleep disordered breathing: No Allergies and Home Medications Known drug allergies: No Drug allergies reviewed: Yes Home medication list reviewed: Yes Allergy and home medication list: Allergies No Known Drug Allergies Allergy (Verified 05/13/21 09:01) Medications: Duloxetine 60 mg, daily HCTZ 12.5 mg, daily Vitamin D 2000 IU, daily Multivitamin, daily Vitamin B12 5000 mg every other day Review of Systems Weight gain over past 5 years: 40 Cardiovascular: reports: high blood pressure Respiratory: reports: shortness of breath Gastrointestinal: reports: heartburn Urinary: reports: frequency Neurological: reports: headaches, head trauma (just as a kid, nothing current), disorientation, gait or balance problems Psychiatric: denies: anxiety, depression Ear/Nose/Throat: reports: dry mouth/throat, wisdom teeth removed. denies: injury to nose, tonsillectomy Endocrine: reports: unexplained weakness Musculoskeletal: reports: joint pain, neck pain, back pain Immunologic: reports: allergies to food or environment (lettuce sometimes; Hernia surgery and he threw up) Physical Exam Vital signs obtained and entered by: PEPPER BRAGG Blood Pressure: 125/73 (LEFT, PULSE 91, RESP 18,) Cuff size: wrist Heart Rate: 83 O2 Saturation: 98 (CLOTH) Height: 5 ft 11 in Weight: 220 lb Body Mass Index: 30.7 BMI Classification: Obese Neck circumference: 14.5 (INCHES) Mouth and throat: narrow oropharynx Soft palate: normal Hard palate: normal Uvula: normal Uvula visualization: 50% Mallampati Class II Tongue: enlarged in size with teeth craig on lateral edges Tonsils: small Neck: normal w/o lymphadenopathy or thyromegaly Heart: regular rate and rhythm Lungs: clear bilaterally Impression and Plan 1. Suspected Obstructive Sleep Apnea-Hypopnea Syndrome, as suggested by a history of frequent awakening during the night, unrefreshed sleep, cognitive impairment, and excessive daytime sleepiness. Narrow oropharynx and obesity are common predisposing factors for obstructive sleep apnea-hypopnea syndrome. I recommend proceeding to polysomnography to confirm the diagnosis and to assess severity. If the patient has significant sleep disordered breathing, a manual CPAP titration study will also be performed to find the optimal treatment pressure. I informed the patient of what the sleep studies involve and after some discussion, obtained agreement to proceed. The pathophysiology of obstructive sleep apnea-hypopnea syndrome was discussed with the patient and health risks of cardiovascular and cerebrovascular disease if not treated. Risks of drowsy driving discussed in detail and patient advised to avoid long distance driving and to shoe puller at the first sign of drowsiness. Patient felt he might not be able to sleep the night of study without help. He would like to to an in lab PSG. I offered and he accepted a one time dose for Zolpidem 5 mg for the night of the study to help him fall asleep. Patient agreed to plan. * Schedule polysomnography +- manual CPAP titration study and return in 1-2 weeks after the study to discuss results. * Script for Zolpidem 5 mg for night of study * Avoid long distance driving or driving when feeling sleepy. * Avoid alcohol, sedative and muscle relaxant around bedtime. * Attempt to lose weight. * Review instructions provided by trained office staff on how to prepare for the sleep study. * Return for follow-up after sleep study completed. Counseling Topics: Weight loss health impact Visit Type: In Office Time Spent with Patient (minutes): 32 Provider Statement: I spent 100% of the Face to Face Visit with the patient with greater than 50% spent counseling the patient and coordination of care.
== END 2021-11-12 13:46 | disposition home or self-care (01) ==
LOC: SC 13:45
PROVIDERS: ATTEND Nurse Practitioner Family
DX: G47.10 Hypersomnia, unspecified (principal); R53.83 Other fatigue; G47.8 Other sleep disorders; I10 Essential (primary) hypertension; E66.9 Obesity, unspecified; Z68.30 Body mass index [BMI] 30.0-30.9, adult
CPT/HCPCS: 99203; 99212

== ENCOUNTER 2021-12-29 19:28 | Outpatient (CLI) | payer OTHER | END 2021-12-29 19:29 | disposition home or self-care (01) | LOC: SC 19:28 | PROVIDERS: ATTEND Nurse Practitioner Family | DX: G47.33 Obstructive sleep apnea (adult) (pediatric) (principal) | CPT/HCPCS: 95810 ==